=== PATIENT | male | born 1960 | race Caucasian/White ===

== ENCOUNTER 2021-03-10 17:04 | Emergency (ER) | payer BC, OTHER ==
[2021-03-10] MEDS ORDERED: Sodium Chloride 0.9% 10 ML Syringe FLUSH PRN (17:22)
[2021-03-10] MEDS ORDERED: Sodium Chloride 0.9% 1,000 ML IV ONE (17:31)
[2021-03-10] MEDS ORDERED: Diltiazem 50 MG/10 ML SDV IVPUSH ONE (17:32)
[2021-03-10] MEDS ORDERED: Diltiazem 100 MG in Sodium Chloride 0.9% 100 ML IV SCH (17:45)
[2021-03-10 20:11] LABS: CORONAVIRUS COVID-19 NAA POSITIVE (NEGATIVE)
== END 2021-03-10 20:35 | disposition home or self-care (01) ==
LOC: JD.ED 17:04
DX: U07.1 COVID-19 (principal); I48.91 Unspecified atrial fibrillation; I11.0 Hypertensive heart disease with heart failure; I50.9 Heart failure, unspecified; Z79.01 Long term (current) use of anticoagulants; Z72.0 Tobacco use; Z79.899 Other long term (current) drug therapy
CPT/HCPCS: 0240U; 36415; 71045; 80053; 83735; 84484; 85025; 85610; 85730; 93005; 96365; 99285; J3490; J7030

== ENCOUNTER 2021-07-04 19:55 | Emergency (ER) | payer OTHER | END 2021-07-04 21:40 | disposition left against medical advice (07) | LOC: JD.ED 19:55 | DX: Z53.21 Procedure and treatment not carried out due to patient leaving prior to being seen by health care provider (principal) ==

== ENCOUNTER 2023-06-29 10:36 | Emergency (ER) | payer MEDICARE, MEDICAID ==
[2023-06-29] MEDS: Sodium Chloride 0.9% 1,000 ML IV STA (11:00)
[2023-06-29 11:08] LABS: EOSINOPHILS PERCENT AUTO 0.4 % (0.0-6.0); HEMATOCRIT 18.1 % (42.0-52.0); IMMATURE GRAN ABSOLUTE AUTO 0.06 K/mm3 (0.00-0.05); IMMATURE GRAN PERCENT AUTO 2.3 % (0.0-0.4); LYMPHOCYTES ABSOLUTE AUTO 0.8 K/mm3 (1.0-4.8); LYMPHOCYTES PERCENT AUTO 29.6 % (24.0-44.0); MEAN CORPUSCULAR HEMOGLOBIN 28.2 pg (28.0-32.0); MEAN CORPUSCULAR HGB CONC 33.1 g/dl (32.0-36.0); MONOCYTES ABSOLUTE AUTO 0.4 K/mm3 (0.0-0.8); MONOCYTES PERCENT AUTO 13.8 % (0.0-8.0); NEUTROPHILS ABSOLUTE AUTO 1.4 K/mm3 (1.8-7.7); NEUTROPHILS PERCENT AUTO 53.9 % (41.0-71.0); RED BLOOD CELL COUNT 2.13 M/mm3 (4.52-5.90)
[2023-06-29 11:13] LABS: PLATELET COUNT,PLT 25 K/mm3 (150-400)
[2023-06-29 11:37] LABS: A/G RATIO 0.5 (1-2); ALBUMIN 2.8 g/dl (3.4-5.0); ANION GAP 16.2 (5-15); BILIRUBIN TOTAL 0.4 mg/dL (0.2-1.0); BUN/CREATININE RATIO 18.9 (14-18); CALCIUM 9.4 mg/dL (8.5-10.1); CREATININE 1.8 mg/dL (0.7-1.3); EST CRCL DRUG DOSING (CG) 44.91 mL/min; MAGNESIUM 1.7 mg/dL (1.8-2.4); POTASSIUM,K 3.2 mEq/L (3.5-5.1); PROTEIN TOTAL,TP 8.4 g/dl (6.4-8.2)
[2023-06-29] MEDS: Sodium Chloride 0.9% 10 ML Syringe FLUSH PRN (11:46)
[2023-06-29 12:13] LABS: INR 1.3; PROTHROMBIN TIME 13.6 SECONDS (9.7-12.0)
[2023-06-29] MEDS: Sodium Chloride 0.9% 250 ML IV SCH (13:26)
[2023-06-29] MEDS ORDERED: Sodium Chloride 0.9% 250 ML IV SCH (17:00)
== END 2023-06-29 19:28 | disposition home or self-care (01) ==
LOC: JD.ED 10:36
DX: D69.6 Thrombocytopenia, unspecified (principal); D64.9 Anemia, unspecified; C34.90 Malignant neoplasm of unspecified part of unspecified bronchus or lung; I11.0 Hypertensive heart disease with heart failure; I50.9 Heart failure, unspecified; I48.91 Unspecified atrial fibrillation; F17.210 Nicotine dependence, cigarettes, uncomplicated; Z79.899 Other long term (current) drug therapy; Z79.01 Long term (current) use of anticoagulants; Z86.73 Personal history of transient ischemic attack (TIA), and cerebral infarction without residual deficits; Z90.49 Acquired absence of other specified parts of digestive tract
CPT/HCPCS: 36415; 36430; 71046; 80053; 83735; 84484; 85025; 85610; 86850; 86900; 86901; 86922; 93005; 96360; 96361; 99285; J3490; J7030; J7050; P9016; 93010; 99283

== ENCOUNTER 2023-09-06 12:12 | Emergency (ER) | payer MEDICARE, MEDICAID ==
[2023-09-06 13:12] LABS: EOSINOPHILS ABSOLUTE AUTO 0.1 K/mm3 (0.0-0.4); HEMATOCRIT 22.4 % (42.0-52.0); IMMATURE GRAN ABSOLUTE AUTO 0.02 K/mm3 (0.00-0.05); IMMATURE GRAN PERCENT AUTO 0.7 % (0.0-0.4); LYMPHOCYTES ABSOLUTE AUTO 0.6 K/mm3 (1.0-4.8); LYMPHOCYTES PERCENT AUTO 20.5 % (24.0-44.0); MEAN CORPUSCULAR HEMOGLOBIN 29.6 pg (28.0-32.0); MEAN CORPUSCULAR HGB CONC 31.7 g/dl (32.0-36.0); MEAN PLATELET VOLUME 11.2 fl (9.4-12.4); MONOCYTES ABSOLUTE AUTO 0.6 K/mm3 (0.0-0.8); MONOCYTES PERCENT AUTO 19.5 % (0.0-8.0); NEUTROPHILS ABSOLUTE AUTO 1.7 K/mm3 (1.8-7.7); NEUTROPHILS PERCENT AUTO 57.3 % (41.0-71.0); PLATELET COUNT,PLT 43 K/mm3 (150-400); WHITE BLOOD CELL COUNT,WBC 3.02 K/mm3 (3.9-11.3)
[2023-09-06 13:17] LABS: HEMOGLOBIN 7.1 gm/dl (14.0-18.0); MEAN CORPUSCULAR VOLUME 93.3 fl (83.0-99.0)
[2023-09-06 13:35] LABS: A/G RATIO 0.5 (1-2); ALBUMIN 2.6 g/dl (3.4-5.0); ANION GAP 14.6 (5-15); BILIRUBIN TOTAL 0.3 mg/dL (0.2-1.0); BUN/CREATININE RATIO 18.8 (14-18); CALCIUM 9.3 mg/dL (8.5-10.1); CREATININE 1.7 mg/dL (0.7-1.3); EST CRCL DRUG DOSING (CG) 47.55 mL/min; POTASSIUM,K 4.6 mEq/L (3.5-5.1); PROTEIN TOTAL,TP 8.3 g/dl (6.4-8.2)
[2023-09-06 14:01] LABS: SLIDE REVIEW ABNORMAL SMEAR
[2023-09-06] MEDS: Acetaminophen 325 MG Tab PO ONE (15:50)
== END 2023-09-06 22:10 | disposition home or self-care (01) ==
LOC: JD.ED 12:12
DX: D64.9 Anemia, unspecified (principal); C34.90 Malignant neoplasm of unspecified part of unspecified bronchus or lung; D69.6 Thrombocytopenia, unspecified; I11.0 Hypertensive heart disease with heart failure; I50.9 Heart failure, unspecified; F17.210 Nicotine dependence, cigarettes, uncomplicated; Z86.16 Personal history of COVID-19; Z79.899 Other long term (current) drug therapy
CPT/HCPCS: 36415; 36430; 71046; 80053; 84484; 85025; 86850; 86900; 86901; 86922; 93005; 99285; A9270; P9016; 93010; 99283

== ENCOUNTER 2023-09-21 22:00 | Inpatient (IN) | payer MEDICARE, MEDICAID ==
[2023-09-21 22:42] LABS: HEMOGLOBIN 7.5 gm/dl (14.0-18.0); MEAN CORPUSCULAR HGB CONC 32.6 g/dl (32.0-36.0); MEAN CORPUSCULAR VOLUME 88.8 fl (83.0-99.0); MEAN PLATELET VOLUME 11.1 fl (9.4-12.4); PLATELET COUNT,PLT 90 K/mm3 (150-400); RED BLOOD CELL COUNT 2.59 M/mm3 (4.52-5.90)
[2023-09-21 22:45] LABS: WHITE BLOOD CELL COUNT,WBC 1.38 K/mm3 (3.9-11.3)
[2023-09-21 23:01] LABS: LACTIC ACID 1.9 mmol/L (0.4-2.0)
[2023-09-21 23:09] LABS: A/G RATIO 0.4 (1-2); ALBUMIN 2.4 g/dl (3.4-5.0); ANION GAP 17.7 (5-15); BILIRUBIN TOTAL 0.7 mg/dL (0.2-1.0); BUN/CREATININE RATIO 21.2 (14-18); CALCIUM 9.4 mg/dL (8.5-10.1); CREATININE 1.7 mg/dL (0.7-1.3); EST CRCL DRUG DOSING (CG) 47.55 mL/min; MAGNESIUM 1.4 mg/dL (1.8-2.4); POTASSIUM,K 3.7 mEq/L (3.5-5.1); PROTEIN TOTAL,TP 8.2 g/dl (6.4-8.2); TSH 1.859 uIU/mL (0.358-3.74)
[2023-09-21 23:54] LABS: BAND PERCENT MAN 0 % (0-10); BASOPHILS PERCENT MAN 0 (0.2-1.2); EOSINOPHILS PERCENT MAN 0 % (0.8-7.0); LYMPHOCYTES % ATYPICAL MANUAL 0 %; LYMPHOCYTES PERCENT MAN 31 % (20-40); MONOCYTES PERCENT MAN 14 % (2-10)
[2023-09-21 23:56] LABS: PLATELET COUNT ESTIMATE DECREASED
[2023-09-22] MEDS ORDERED: Magnesium Sulfate (4.06 MEQ/ML) 5 GM/10 ML SDV IV ONE (02:17)
[2023-09-22] MEDS: Levofloxacin/Dextrose 5%-Water 750 MG in Premix Bag 1 BAG IV ONE (02:27)
[2023-09-22] MEDS: Magnesium Sulfate/Water 2 GM in Premix Bag 1 BAG IV SCH (04:17)
[2023-09-22] MEDS: Sodium Chloride 0.9% 10 ML Syringe FLUSH PRN (04:18)
[2023-09-22] MEDS ORDERED: Docusate Sodium 100 MG Cap PO PRN (07:53)
[2023-09-22] MEDS ORDERED: oxyCODONE 5 MG Tab PO PRN (07:53)
[2023-09-22] MEDS ORDERED: Ondansetron 4 MG/2 ML SDV IV PRN (07:53)
[2023-09-22] MEDS ORDERED: Acetaminophen 325 MG Tab PO PRN (07:53)
[2023-09-22] MEDS ORDERED: Polyethylene Glycol 3350 Powder 17 GM Packet PO PRN (09:00)
[2023-09-22 09:09] LABS: APPEARANCE,URINE CLEAR (Clear); BILIRUBIN,URINE NEGATIVE (Negative); COLOR,URINE YELLOW (Yellow); GLUCOSE,URINE NEGATIVE (Negative); KETONES,URINE NEGATIVE (Negative); LEUKOCYTE ESTERASE,URINE NEGATIVE (Negative); NITRITE,URINE NEGATIVE (Negative); OCCULT BLOOD,URINE TRACE-INTACT (Negative); PH,URINE 5.5 (5.0-8.0); PROTEIN,URINE 1+ (Negative); UROBILINOGEN,URINE 0.2 (0.2-1.0)
[2023-09-22 09:18] LABS: BACTERIA,URINE FEW /hpf (FEW); MUCUS,URINE MODERATE /hpf (FEW); RBC,URINE 0-5 /hpf (0-5); WBC,URINE 0-5 /hpf (0-5)
[2023-09-22 09:34] LABS: FINE GRANULAR CASTS,URINE 0-5 /lpf (0-5); SQUAMOUS EPITHELIAL CELLS,UR 0-5 /hpf (0-5)
[2023-09-22] MEDS: Rosuvastatin 10 MG Tab PO SCH (10:14)
[2023-09-22] MEDS: HYDROmorphone 2 MG Tab PO PRN (10:14)
[2023-09-22] MEDS: Gabapentin 100 MG Cap PO SCH (10:14)
[2023-09-22] MEDS: Folic Acid 1 MG Tab PO SCH (10:15)
[2023-09-22] MEDS: Metoprolol Succinate 50 MG Tab.ER PO SCH (10:15)
[2023-09-22] MEDS: Lidocaine 4% 1 each Patch TOP SCH ×2 (10:16→12:58)
[2023-09-22] MEDS: Nicotine 21 MG/24 Hr Patch TRDERM SCH (10:16)
[2023-09-22] MEDS ORDERED: Nicotine 21 MG/24 Hr Patch TRDERM PRN (11:50)
[2023-09-22] MEDS: Sodium Chloride 0.9% 500 ML IV ONE (12:55)
[2023-09-22 15:38] LABS: CORONAVIRUS COVID-19 NAA NEGATIVE (NEGATIVE); INFLUENZA A NAA NEGATIVE (NEGATIVE); RESPIRATORY SYNCYTIAL VIR NAA NEGATIVE (NEGATIVE)
[2023-09-23] MEDS: Levofloxacin/Dextrose 5%-Water 750 MG in Premix Bag 1 BAG IV SCH (02:10)
[2023-09-23 04:56] LABS: HEMATOCRIT 21.2 % (42.0-52.0); MEAN CORPUSCULAR HEMOGLOBIN 28.7 pg (28.0-32.0); MEAN CORPUSCULAR HGB CONC 32.1 g/dl (32.0-36.0); MEAN CORPUSCULAR VOLUME 89.5 fl (83.0-99.0); MEAN PLATELET VOLUME 12.2 fl (9.4-12.4); PLATELET COUNT,PLT 71 K/mm3 (150-400); RED BLOOD CELL COUNT 2.37 M/mm3 (4.52-5.90)
[2023-09-23 05:27] LABS: A/G RATIO 0.4 (1-2); ANION GAP 12.8 (5-15); BILIRUBIN TOTAL 0.3 mg/dL (0.2-1.0); C-REACTIVE PROTEIN 22.95 mg/dL (<0.30); CREATININE 1.2 mg/dL (0.7-1.3); EST CRCL DRUG DOSING (CG) 67.36 mL/min; MAGNESIUM 1.8 mg/dL (1.8-2.4); POTASSIUM,K 3.8 mEq/L (3.5-5.1); PROTEIN TOTAL,TP 7.3 g/dl (6.4-8.2)
[2023-09-23 06:30] LABS: HEMOGLOBIN 6.8 gm/dl (14.0-18.0); WHITE BLOOD CELL COUNT,WBC 2.22 K/mm3 (3.9-11.3)
[2023-09-23 06:44] LABS: BAND PERCENT MAN 0 % (0-10); BASOPHILS PERCENT MAN 0 (0.2-1.2); EOSINOPHILS PERCENT MAN 0 % (0.8-7.0); LYMPHOCYTES % ATYPICAL MANUAL 0 %; LYMPHOCYTES PERCENT MAN 28 % (20-40); MONOCYTES PERCENT MAN 18 % (2-10)
[2023-09-23 06:45] LABS: ANISOCYTOSIS 1+ SLIGHT
[2023-09-23] MEDS ORDERED: Sodium Chloride 0.9% 250 ML IV SCH (06:45)
[2023-09-23 06:49] LABS: PLATELET COUNT ESTIMATE DECREASED
[2023-09-23] MEDS: Potassium Chloride 20 MEQ Tab.ER PO ONE (09:22)
[2023-09-23] MEDS: Aspirin 81 MG Tab.Chew PO SCH (09:22)
[2023-09-23] MEDS: Apixaban 5 MG Tab PO SCH (09:22)
[2023-09-23] MEDS: Magnesium Sulfate/Water 2 GM in Premix Bag 1 BAG IV ONE (09:24)
[2023-09-23] MEDS: Acetaminophen/HYDROcodone 325-5 MG Tab PO PRN (20:23)
[2023-09-24 05:43] LABS: HEMATOCRIT 24.4 % (42.0-52.0); MEAN CORPUSCULAR HEMOGLOBIN 29.2 pg (28.0-32.0); MEAN CORPUSCULAR HGB CONC 32.8 g/dl (32.0-36.0); MEAN CORPUSCULAR VOLUME 89.1 fl (83.0-99.0); MEAN PLATELET VOLUME 11.5 fl (9.4-12.4); NRBC ABSOLUTE 0.02 (0.00-0.02); NRBC PERCENT 0.3 % (0.0-0.2); PLATELET COUNT,PLT 52 K/mm3 (150-400); RED BLOOD CELL COUNT 2.74 M/mm3 (4.52-5.90); WHITE BLOOD CELL COUNT,WBC 6.41 K/mm3 (3.9-11.3)
[2023-09-24 06:08] LABS: BAND PERCENT MAN 3 % (0-10); BASOPHILS PERCENT MAN 0 (0.2-1.2); EOSINOPHILS PERCENT MAN 1 % (0.8-7.0); LYMPHOCYTES % ATYPICAL MANUAL 0 %; LYMPHOCYTES PERCENT MAN 12 % (20-40); MONOCYTES PERCENT MAN 12 % (2-10); PLATELET COUNT ESTIMATE DECREASED
[2023-09-24 06:19] LABS: A/G RATIO 0.4 (1-2); BILIRUBIN TOTAL 0.5 mg/dL (0.2-1.0); BUN/CREATININE RATIO 18.5 (14-18); C-REACTIVE PROTEIN 18.75 mg/dL (<0.30); CALCIUM 9.2 mg/dL (8.5-10.1); CREATININE 1.3 mg/dL (0.7-1.3); EST CRCL DRUG DOSING (CG) 62.18 mL/min; MAGNESIUM 1.8 mg/dL (1.8-2.4); PROTEIN TOTAL,TP 7.1 g/dl (6.4-8.2)
== END 2023-09-24 11:47 | disposition home or self-care (01) | DRG 180 ==
LOC: JD.ED 22:00 → JD.MS 09-22 06:49
PROVIDERS: ADMIT Internal Medicine; ATTEND Internal Medicine
DX: D61.818 Other pancytopenia (principal); C34.91 Malignant neoplasm of unspecified part of right bronchus or lung; D72.819 Decreased white blood cell count, unspecified; R05.9 Cough, unspecified; D61.810 Antineoplastic chemotherapy induced pancytopenia; E87.1 Hypo-osmolality and hyponatremia; R74.9 Abnormal serum enzyme level, unspecified; I11.0 Hypertensive heart disease with heart failure; I50.9 Heart failure, unspecified; I42.0 Dilated cardiomyopathy; I50.22 Chronic systolic (congestive) heart failure; J91.0 Malignant pleural effusion; I13.0 Hypertensive heart and chronic kidney disease with heart failure and stage 1 through stage 4 chronic kidney disease, or unspecified chronic kidney disease; E86.0 Dehydration; G89.29 Other chronic pain; I48.91 Unspecified atrial fibrillation; F41.9 Anxiety disorder, unspecified; T45.1X5A Adverse effect of antineoplastic and immunosuppressive drugs, initial encounter; M19.90 Unspecified osteoarthritis, unspecified site; E78.5 Hyperlipidemia, unspecified; D64.9 Anemia, unspecified; M54.50 Low back pain, unspecified; I65.29 Occlusion and stenosis of unspecified carotid artery; E83.42 Hypomagnesemia; R79.89 Other specified abnormal findings of blood chemistry; E87.8 Other disorders of electrolyte and fluid balance, not elsewhere classified; N18.32 Chronic kidney disease, stage 3b; F17.200 Nicotine dependence, unspecified, uncomplicated; Z95.810 Presence of automatic (implantable) cardiac defibrillator; Z79.01 Long term (current) use of anticoagulants; Z79.82 Long term (current) use of aspirin; Z79.899 Other long term (current) drug therapy; Z86.16 Personal history of COVID-19; Z90.49 Acquired absence of other specified parts of digestive tract; Z86.73 Personal history of transient ischemic attack (TIA), and cerebral infarction without residual deficits
CPT/HCPCS: 0241U; 36415; 36430; 71045; 80053; 81001; 83605; 83735; 83880; 84443; 84484; 85007; 85027; 86140; 86850; 86900; 86901; 86922; 87040; 93005; 94761; 97161; 93010; 99285; A9270-GY; J1446; J1956; J3475; J3490; J7030; P9016

== ENCOUNTER 2023-10-12 11:03 | Inpatient (IN) | payer MEDICARE, MEDICAID ==
[2023-10-12 11:55] LABS: BASOPHILS PERCENT AUTO 0.4 % (0.0-1.0); EOSINOPHILS ABSOLUTE AUTO 0.1 K/mm3 (0.0-0.4); EOSINOPHILS PERCENT AUTO 0.9 % (0.0-6.0); HEMATOCRIT 26.9 % (42.0-52.0); HEMOGLOBIN 8.5 gm/dl (14.0-18.0); IMMATURE GRAN ABSOLUTE AUTO 0.03 K/mm3 (0.00-0.05); IMMATURE GRAN PERCENT AUTO 0.5 % (0.0-0.4); LYMPHOCYTES ABSOLUTE AUTO 1.1 K/mm3 (1.0-4.8); LYMPHOCYTES PERCENT AUTO 20.6 % (24.0-44.0); MEAN CORPUSCULAR HEMOGLOBIN 29.8 pg (28.0-32.0); MEAN CORPUSCULAR HGB CONC 31.6 g/dl (32.0-36.0); MEAN CORPUSCULAR VOLUME 94.4 fl (83.0-99.0); MEAN PLATELET VOLUME 11.1 fl (9.4-12.4); MONOCYTES ABSOLUTE AUTO 0.8 K/mm3 (0.0-0.8); MONOCYTES PERCENT AUTO 14.1 % (0.0-8.0); NEUTROPHILS ABSOLUTE AUTO 3.5 K/mm3 (1.8-7.7); NEUTROPHILS PERCENT AUTO 63.5 % (41.0-71.0); PLATELET COUNT,PLT 144 K/mm3 (150-400); RED BLOOD CELL COUNT 2.85 M/mm3 (4.52-5.90); WHITE BLOOD CELL COUNT,WBC 5.48 K/mm3 (3.9-11.3)
[2023-10-12] MEDS: Sodium Chloride 0.9% 1,000 ML IV ONE ×2 (12:13→17:30)
[2023-10-12 12:22] LABS: LACTIC ACID 1.8 mmol/L (0.4-2.0)
[2023-10-12 12:29] LABS: A/G RATIO 0.4 (1-2); ALBUMIN 2.4 g/dl (3.4-5.0); ANION GAP 16.9 (5-15); BILIRUBIN TOTAL 0.9 mg/dL (0.2-1.0); BUN/CREATININE RATIO 17.3 (14-18); CALCIUM 9.7 mg/dL (8.5-10.1); CREATININE 1.5 mg/dL (0.7-1.3); EST CRCL DRUG DOSING (CG) 53.89 mL/min; MAGNESIUM 1.4 mg/dL (1.8-2.4); POTASSIUM,K 3.9 mEq/L (3.5-5.1); PROTEIN TOTAL,TP 7.8 g/dl (6.4-8.2)
[2023-10-12 13:04] LABS: CORONAVIRUS COVID-19 NAA NEGATIVE (NEGATIVE); INFLUENZA A NAA NEGATIVE (NEGATIVE); RESPIRATORY SYNCYTIAL VIR NAA NEGATIVE (NEGATIVE)
[2023-10-12] MEDS: Magnesium Sulfate/Water Premix 2 GM in Premix Bag 1 BAG IV ONE (13:34)
[2023-10-12] MEDS: Ondansetron 4 MG/2 ML SDV IVPUSH ONE (17:30)
[2023-10-12] MEDS ORDERED: Acetaminophen 325 MG Tab PO PRN (18:41)
[2023-10-12] MEDS: Acetaminophen/HYDROcodone 325-5 MG Tab PO PRN (19:03)
[2023-10-12] MEDS: Sodium Chloride 0.9% 1,000 ML IV SCH (19:05)
[2023-10-13] MEDS: Morphine 2 MG/ML SYRINGE IVPUSH PRN (02:22)
[2023-10-13] MEDS: Sennosides 8.6 MG Tab PO SCH (02:22)
[2023-10-13 06:25] LABS: BASOPHILS PERCENT AUTO 0.7 % (0.0-1.0); EOSINOPHILS ABSOLUTE AUTO 0.1 K/mm3 (0.0-0.4); EOSINOPHILS PERCENT AUTO 2.7 % (0.0-6.0); HEMATOCRIT 23.9 % (42.0-52.0); IMMATURE GRAN ABSOLUTE AUTO 0.03 K/mm3 (0.00-0.05); IMMATURE GRAN PERCENT AUTO 0.7 % (0.0-0.4); LYMPHOCYTES PERCENT AUTO 21.7 % (24.0-44.0); MEAN CORPUSCULAR HEMOGLOBIN 29.6 pg (28.0-32.0); MEAN CORPUSCULAR VOLUME 95.6 fl (83.0-99.0); MEAN PLATELET VOLUME 11.5 fl (9.4-12.4); MONOCYTES ABSOLUTE AUTO 0.8 K/mm3 (0.0-0.8); MONOCYTES PERCENT AUTO 17.7 % (0.0-8.0); NEUTROPHILS ABSOLUTE AUTO 2.5 K/mm3 (1.8-7.7); NEUTROPHILS PERCENT AUTO 56.5 % (41.0-71.0); PLATELET COUNT,PLT 120 K/mm3 (150-400); WHITE BLOOD CELL COUNT,WBC 4.46 K/mm3 (3.9-11.3)
[2023-10-13 06:27] LABS: HEMOGLOBIN 7.4 gm/dl (14.0-18.0)
[2023-10-13 06:51] LABS: A/G RATIO 0.5 (1-2); ALBUMIN 2.1 g/dl (3.4-5.0); ANION GAP 10.5 (5-15); BILIRUBIN TOTAL 0.6 mg/dL (0.2-1.0); BUN/CREATININE RATIO 18.3 (14-18); CALCIUM 8.7 mg/dL (8.5-10.1); CREATININE 1.2 mg/dL (0.7-1.3); EST CRCL DRUG DOSING (CG) 67.36 mL/min; POTASSIUM,K 3.5 mEq/L (3.5-5.1); PROTEIN TOTAL,TP 6.8 g/dl (6.4-8.2)
[2023-10-13] MEDS: Ondansetron 4 MG Tab.DIS PO PRN (07:41)
[2023-10-13] MEDS: Sennosides/Docusate Sodium 50-8.6 MG Tab PO SCH ×2 (08:35→20:49)
[2023-10-13] MEDS: Metoprolol Succinate 50 MG Tab.ER PO SCH (08:35)
[2023-10-13] MEDS: DULoxetine 20 MG Cap PO SCH (08:36)
[2023-10-13] MEDS: Enoxaparin 40 MG/0.4 ML Syringe SUBCUT SCH (08:36)
[2023-10-13] MEDS ORDERED: Morphine 2 MG/ML SYRINGE IVPUSH PRN (13:31)
[2023-10-13 15:21] LABS: HEMATOCRIT 23.4 % (42.0-52.0)
[2023-10-13] MEDS: Polyethylene Glycol 3350 Powder 17 GM Packet PO SCH (15:30)
[2023-10-13 15:41] LABS: HEMOGLOBIN 7.2 gm/dl (14.0-18.0)
[2023-10-13 16:34] LABS: FERRITIN 1978 ng/ml (26-388); IRON,FE 40 ug/dL (65-175)
[2023-10-13 16:36] LABS: IRON,FE 40 ug/dL (65-175); PERCENT FE SATURATION 24 % (20-55); TOTAL IRON BINDING CAPACITY 165 ug/dL (100-400); TRANSFERRIN 132 mg/dL (202-364)
[2023-10-13 20:12] LABS: HEMATOCRIT 23.5 % (42.0-52.0)
[2023-10-13 20:16] LABS: HEMOGLOBIN 7.3 gm/dl (14.0-18.0)
[2023-10-13] MEDS: Magnesium Sulfate/Water Premix 4 GM in Premix Bag 1 BAG IV ONE (20:49)
[2023-10-14 04:38] LABS: BASOPHILS PERCENT AUTO 0.5 % (0.0-1.0); EOSINOPHILS ABSOLUTE AUTO 0.1 K/mm3 (0.0-0.4); EOSINOPHILS PERCENT AUTO 2.6 % (0.0-6.0); IMMATURE GRAN ABSOLUTE AUTO 0.03 K/mm3 (0.00-0.05); IMMATURE GRAN PERCENT AUTO 0.8 % (0.0-0.4); LYMPHOCYTES ABSOLUTE AUTO 0.7 K/mm3 (1.0-4.8); LYMPHOCYTES PERCENT AUTO 18.8 % (24.0-44.0); MEAN CORPUSCULAR HEMOGLOBIN 29.3 pg (28.0-32.0); MEAN CORPUSCULAR HGB CONC 30.4 g/dl (32.0-36.0); MEAN CORPUSCULAR VOLUME 96.4 fl (83.0-99.0); MEAN PLATELET VOLUME 11.6 fl (9.4-12.4); MONOCYTES ABSOLUTE AUTO 0.6 K/mm3 (0.0-0.8); MONOCYTES PERCENT AUTO 15.2 % (0.0-8.0); NEUTROPHILS ABSOLUTE AUTO 2.4 K/mm3 (1.8-7.7); NEUTROPHILS PERCENT AUTO 62.1 % (41.0-71.0); PLATELET COUNT,PLT 120 K/mm3 (150-400); RED BLOOD CELL COUNT 2.49 M/mm3 (4.52-5.90); WHITE BLOOD CELL COUNT,WBC 3.88 K/mm3 (3.9-11.3)
[2023-10-14 04:56] LABS: ANION GAP 11.7 (5-15); BUN/CREATININE RATIO 16.4 (14-18); CALCIUM 8.5 mg/dL (8.5-10.1); CREATININE 1.1 mg/dL (0.7-1.3); EST CRCL DRUG DOSING (CG) 73.48 mL/min; POTASSIUM,K 3.7 mEq/L (3.5-5.1)
[2023-10-14 05:16] LABS: HEMOGLOBIN 7.3 gm/dl (14.0-18.0)
[2023-10-14 15:09] LABS: HEMATOCRIT 23.5 % (42.0-52.0)
[2023-10-14 15:11] LABS: HEMOGLOBIN 7.3 gm/dl (14.0-18.0)
[2023-10-15 05:34] LABS: BASOPHILS PERCENT AUTO 0.2 % (0.0-1.0); EOSINOPHILS ABSOLUTE AUTO 0.1 K/mm3 (0.0-0.4); EOSINOPHILS PERCENT AUTO 1.9 % (0.0-6.0); HEMATOCRIT 22.8 % (42.0-52.0); IMMATURE GRAN ABSOLUTE AUTO 0.06 K/mm3 (0.00-0.05); IMMATURE GRAN PERCENT AUTO 1.5 % (0.0-0.4); LYMPHOCYTES ABSOLUTE AUTO 0.6 K/mm3 (1.0-4.8); LYMPHOCYTES PERCENT AUTO 15.3 % (24.0-44.0); MEAN CORPUSCULAR HEMOGLOBIN 29.5 pg (28.0-32.0); MEAN CORPUSCULAR HGB CONC 31.1 g/dl (32.0-36.0); MEAN CORPUSCULAR VOLUME 94.6 fl (83.0-99.0); MEAN PLATELET VOLUME 11.7 fl (9.4-12.4); MONOCYTES ABSOLUTE AUTO 0.5 K/mm3 (0.0-0.8); MONOCYTES PERCENT AUTO 13.1 % (0.0-8.0); NEUTROPHILS ABSOLUTE AUTO 2.8 K/mm3 (1.8-7.7); NRBC ABSOLUTE 0.02 (0.00-0.02); NRBC PERCENT 0.5 % (0.0-0.2); PLATELET COUNT,PLT 112 K/mm3 (150-400); RED BLOOD CELL COUNT 2.41 M/mm3 (4.52-5.90); WHITE BLOOD CELL COUNT,WBC 4.11 K/mm3 (3.9-11.3)
[2023-10-15 05:41] LABS: HEMOGLOBIN 7.1 gm/dl (14.0-18.0)
[2023-10-15] MEDS: Iopamidol 612 MG/ML 30 ML SDV IVPUSH ONE ×3 (10:05→10:06)
[2023-10-15] MEDS: Acetaminophen/HYDROcodone 325-5 MG Tab PO PRN (16:58)
[2023-10-16] MEDS: Morphine 15 MG Tab.ER PO SCH ×2 (00:26→12:10)
[2023-10-16 08:22] LABS: BASOPHILS PERCENT AUTO 0.2 % (0.0-1.0); EOSINOPHILS PERCENT AUTO 0.7 % (0.0-6.0); HEMATOCRIT 25.4 % (42.0-52.0); HEMOGLOBIN 7.9 gm/dl (14.0-18.0); IMMATURE GRAN ABSOLUTE AUTO 0.05 K/mm3 (0.00-0.05); IMMATURE GRAN PERCENT AUTO 1.1 % (0.0-0.4); LYMPHOCYTES ABSOLUTE AUTO 0.7 K/mm3 (1.0-4.8); LYMPHOCYTES PERCENT AUTO 14.8 % (24.0-44.0); MEAN CORPUSCULAR HEMOGLOBIN 29.7 pg (28.0-32.0); MEAN CORPUSCULAR HGB CONC 31.1 g/dl (32.0-36.0); MEAN CORPUSCULAR VOLUME 95.5 fl (83.0-99.0); MEAN PLATELET VOLUME 11.5 fl (9.4-12.4); MONOCYTES ABSOLUTE AUTO 0.6 K/mm3 (0.0-0.8); MONOCYTES PERCENT AUTO 13.5 % (0.0-8.0); NEUTROPHILS ABSOLUTE AUTO 3.1 K/mm3 (1.8-7.7); NEUTROPHILS PERCENT AUTO 69.7 % (41.0-71.0); PLATELET COUNT,PLT 133 K/mm3 (150-400); RED BLOOD CELL COUNT 2.66 M/mm3 (4.52-5.90); WHITE BLOOD CELL COUNT,WBC 4.38 K/mm3 (3.9-11.3)
[2023-10-16] MEDS: Magnesium Hydroxide 400 MG/5 ML Susp 30 ML Cup PO ONE (20:22)
[2023-10-17 13:18] LABS: URIC ACID 7.6 mg/dL (3.5-7.2)
[2023-10-17] MEDS: Cefepime 2 GM in Sodium Chloride 0.9% 50 ML IV SCH (14:11)
[2023-10-17] MEDS: Doxycycline 100 MG in Sodium Chloride 0.9% 100 ML IV SCH (22:36)
[2023-10-18 06:42] LABS: BASOPHILS PERCENT AUTO 0.3 % (0.0-1.0); EOSINOPHILS PERCENT AUTO 0.2 % (0.0-6.0); HEMATOCRIT 24.7 % (42.0-52.0); HEMOGLOBIN 7.7 gm/dl (14.0-18.0); IMMATURE GRAN ABSOLUTE AUTO 0.05 K/mm3 (0.00-0.05); IMMATURE GRAN PERCENT AUTO 0.5 % (0.0-0.4); LYMPHOCYTES ABSOLUTE AUTO 0.6 K/mm3 (1.0-4.8); LYMPHOCYTES PERCENT AUTO 5.7 % (24.0-44.0); MEAN CORPUSCULAR HEMOGLOBIN 30.1 pg (28.0-32.0); MEAN CORPUSCULAR HGB CONC 31.2 g/dl (32.0-36.0); MEAN CORPUSCULAR VOLUME 96.5 fl (83.0-99.0); MEAN PLATELET VOLUME 11.5 fl (9.4-12.4); MONOCYTES PERCENT AUTO 10.4 % (0.0-8.0); NEUTROPHILS ABSOLUTE AUTO 8.3 K/mm3 (1.8-7.7); NEUTROPHILS PERCENT AUTO 82.9 % (41.0-71.0); PLATELET COUNT,PLT 143 K/mm3 (150-400); RED BLOOD CELL COUNT 2.56 M/mm3 (4.52-5.90); WHITE BLOOD CELL COUNT,WBC 9.97 K/mm3 (3.9-11.3)
[2023-10-18 07:21] LABS: ANION GAP 12.9 (5-15); BUN/CREATININE RATIO 18.2 (14-18); CREATININE 1.1 mg/dL (0.7-1.3); EST CRCL DRUG DOSING (CG) 73.48 mL/min; POTASSIUM,K 3.9 mEq/L (3.5-5.1)
[2023-10-22] MEDS: Acetaminophen/HYDROcodone 325-5 MG Tab PO PRN (20:31)
[2023-10-23] MEDS: Acetaminophen/HYDROcodone 325-5 MG Tab PO PRN (19:59)
[2023-10-24] MEDS: Lactulose Soln 10 GM/15 ML 30 ML UD Cup PO PRN (13:30)
[2023-10-25] MEDS ORDERED: Polyethylene Glycol 3350 Powder 17 GM Packet PO PRN (11:16)
[2023-10-26] MEDS: Metoclopramide 10 MG Tab PO ONE (09:55)
[2023-10-26] MEDS ORDERED: Sodium Chloride 0.9% 10 ML Syringe FLUSH PRN (10:00)
[2023-10-26] MEDS: Ondansetron 4 MG/2 ML SDV IVPUSH PRN (10:31)
[2023-10-26 10:49] LABS: BASOPHILS PERCENT AUTO 0.4 % (0.0-1.0); HEMATOCRIT 27.9 % (42.0-52.0); HEMOGLOBIN 8.5 gm/dl (14.0-18.0); IMMATURE GRAN ABSOLUTE AUTO 0.32 K/mm3 (0.00-0.05); IMMATURE GRAN PERCENT AUTO 3.7 % (0.0-0.4); LYMPHOCYTES ABSOLUTE AUTO 0.7 K/mm3 (1.0-4.8); LYMPHOCYTES PERCENT AUTO 7.9 % (24.0-44.0); MEAN CORPUSCULAR HEMOGLOBIN 29.8 pg (28.0-32.0); MEAN CORPUSCULAR HGB CONC 30.5 g/dl (32.0-36.0); MEAN CORPUSCULAR VOLUME 97.9 fl (83.0-99.0); MEAN PLATELET VOLUME 12.1 fl (9.4-12.4); MONOCYTES ABSOLUTE AUTO 0.5 K/mm3 (0.0-0.8); MONOCYTES PERCENT AUTO 5.7 % (0.0-8.0); NEUTROPHILS PERCENT AUTO 82.3 % (41.0-71.0); NRBC ABSOLUTE 0.04 (0.00-0.02); NRBC PERCENT 0.5 % (0.0-0.2); PLATELET COUNT,PLT 121 K/mm3 (150-400); RED BLOOD CELL COUNT 2.85 M/mm3 (4.52-5.90); WHITE BLOOD CELL COUNT,WBC 8.56 K/mm3 (3.9-11.3)
[2023-10-26 10:59] LABS: ANION GAP 16.9 (5-15); BUN/CREATININE RATIO 31.8 (14-18); CALCIUM 10.1 mg/dL (8.5-10.1); CREATININE 1.1 mg/dL (0.7-1.3); EST CRCL DRUG DOSING (CG) 73.48 mL/min; MAGNESIUM 1.2 mg/dL (1.8-2.4); PHOSPHORUS 3.4 mg/dL (2.6-4.7); POTASSIUM,K 3.9 mEq/L (3.5-5.1)
[2023-10-26] MEDS: Magnesium Sulfate/Water Premix 4 GM in Premix Bag 1 BAG IV ONE (13:00)
[2023-10-26] MEDS: Megestrol Susp 40 MG/ML 10 ML UD Cup PO SCH (13:00)
[2023-10-26] MEDS: Ondansetron 4 MG/2 ML SDV IVPUSH ONE (20:23)
[2023-10-26] MEDS: Sodium Chloride 0.9% 10 ML Syringe FLUSH SCH (22:27)
[2023-10-27 09:12] LABS: ANION GAP 10.7 (5-15); BUN/CREATININE RATIO 37.3 (14-18); CALCIUM 9.8 mg/dL (8.5-10.1); CREATININE 1.1 mg/dL (0.7-1.3); EST CRCL DRUG DOSING (CG) 73.48 mL/min; MAGNESIUM 1.9 mg/dL (1.8-2.4); POTASSIUM,K 3.7 mEq/L (3.5-5.1)
[2023-10-27] MEDS: Potassium Chloride 20 MEQ Tab.ER PO ONE (11:12)
[2023-10-27] MEDS: Magnesium Sulfate/Water Premix 2 GM in Premix Bag 1 BAG IV ONE (11:12)
[2023-10-28] MEDS ORDERED: Sodium Chloride 0.9% 10 ML Syringe FLUSH PRN (12:27)
[2023-10-28] MEDS: Sodium Chloride 0.9% 10 ML Syringe FLUSH SCH (22:03)
[2023-11-02] MEDS: fentaNYL 12 MCG/HR Transdermal Patch TRDERM SCH (11:26)
[2023-11-02] MEDS: LORazepam 0.5 MG Tab PO PRN (20:34)
[2023-11-03] MEDS: fentaNYL 25 MCG/HR Transdermal Patch TRDERM SCH (09:07)
== END 2023-11-03 13:45 | DRG 180 ==
LOC: JD.ED 11:03 → JD.MS 18:41
PROVIDERS: ADMIT Family Medicine; ATTEND Internal Medicine
DX: C34.91 Malignant neoplasm of unspecified part of right bronchus or lung (principal); J18.9 Pneumonia, unspecified organism; I11.0 Hypertensive heart disease with heart failure; I50.9 Heart failure, unspecified; C78.7 Secondary malignant neoplasm of liver and intrahepatic bile duct; N17.9 Acute kidney failure, unspecified; I13.0 Hypertensive heart and chronic kidney disease with heart failure and stage 1 through stage 4 chronic kidney disease, or unspecified chronic kidney disease; J91.0 Malignant pleural effusion; C79.51 Secondary malignant neoplasm of bone; I50.22 Chronic systolic (congestive) heart failure; Z79.82 Long term (current) use of aspirin; Z79.01 Long term (current) use of anticoagulants; R64 Cachexia; I42.0 Dilated cardiomyopathy; Z66 Do not resuscitate; Z51.5 Encounter for palliative care; Z68.24 Body mass index [BMI] 24.0-24.9, adult; T45.1X5A Adverse effect of antineoplastic and immunosuppressive drugs, initial encounter; I48.91 Unspecified atrial fibrillation; E86.0 Dehydration; F41.9 Anxiety disorder, unspecified; M54.50 Low back pain, unspecified; G89.29 Other chronic pain; E83.42 Hypomagnesemia; M19.90 Unspecified osteoarthritis, unspecified site; D63.0 Anemia in neoplastic disease; N18.32 Chronic kidney disease, stage 3b; D69.6 Thrombocytopenia, unspecified; I65.29 Occlusion and stenosis of unspecified carotid artery; R09.02 Hypoxemia; F17.210 Nicotine dependence, cigarettes, uncomplicated; Z86.16 Personal history of COVID-19; Z90.49 Acquired absence of other specified parts of digestive tract; Z86.73 Personal history of transient ischemic attack (TIA), and cerebral infarction without residual deficits; Z95.810 Presence of automatic (implantable) cardiac defibrillator; Z79.899 Other long term (current) drug therapy
CPT/HCPCS: 0241U; 36415; 71045; 71260; 80048; 80053; 82728; 83540; 83605; 83615; 83735; 83880; 84100; 84145; 84466; 84484; 84550; 85014; 85018; 85025; 86140; 93005; 94760; 94761; 96361; 96365; 96366; 96375; 97110; 97140; 97161; 97530; 99285; 93010; 99223; 99231; 99232; 99233; 99239; A9270-GY; J0692; J1650; J2270; J2405; J3475; J3490; J7030; Q9967